=== PATIENT | male | born 1970 | race African-American/Black ===

== ENCOUNTER 2018-04-30 06:05 | Emergency (ER) | payer SELFPAY ==
[~2018-04-30] VITALS: Ht 182.9 cm; Wt 102.1 kg
[2018-04-30 06:07] VITALS: BP 156/97
[2018-04-30 06:53] LABS: MEAN CORPUSCULAR HGB CONC 33.1 g/dL (33.2-36.2); MEAN CORPUSCULAR VOLUME 87.7 fL (81-97); MEAN PLATELET VOLUME 7.4 fL (7.4-10.4); PLATELET COUNT 189 x10^3/uL (130-400); RED BLOOD COUNT 4.66 x10^6/uL (4.38-5.82); RED CELL DISTRIBUTION WIDTH 12.9 % (9.4-14.8)
[2018-04-30 06:59] LABS: ANION GAP 5 mmol/L (5-15); CALCIUM 8.7 mg/dL (8.5-10.1); CHLORIDE 109 mmol/L (98-107); CREATININE 1.02 mg/dL (0.7-1.3)
[2018-04-30 07:00] LABS: ALANINE AMINOTRANSFERASE 21 U/L (12-78)
[2018-04-30 07:02] LABS: ALKALINE PHOSPHATASE 71 U/L (45-117); BILIRUBIN,TOTAL 0.9 mg/dL (0.2-1.0); TOTAL PROTEIN 7.6 g/dL (6.4-8.2)
[2018-04-30 07:39] LABS: BASOPHILS # (AUTO) 0.01 x10^3/uL (0-0.1); BASOPHILS % (AUTO) 0 % (0-1); EOSINOPHILS # (AUTO) 0.01 x10^3/uL (0-0.4); EOSINOPHILS % (AUTO) 0 % (1-7); LYMPHOCYTES # (AUTO) 1.32 x10^3/uL (1-3.4); LYMPHOCYTES % (AUTO) 30 % (22-44); MONOCYTES # (AUTO) 0.25 x10^3/uL (0.2-0.8); MONOCYTES % (AUTO) 6 % (2-9); NEUTROPHILS # (AUTO) 2.83 x10^3/uL (1.8-6.8); NEUTROPHILS % (AUTO) 64 % (42-75)
[2018-04-30 07:40] LABS: MD SCAN
[2018-04-30 07:52] LABS: MICROSCOPIC AUTO
[2018-04-30] MEDS ORDERED: CEFTRIAXONE 1,000 MG ONE (07:56)
[2018-04-30] MEDS ORDERED: FLUCONAZOLE 100 MG TABLET ONE (07:56)
[2018-04-30] MEDS ORDERED: FLUCONAZOLE 100 MG TABLET PO ONE (08:00)
[2018-04-30] MEDS ORDERED: CEFTRIAXONE 1,000 MG IM ONE (08:00)
[2018-04-30 08:05] LABS: CULTURE INDICATED? NO
== END 2018-04-30 09:11 | disposition home or self-care (01) ==
LOC: ED 08:41
DX: K52.9 Noninfective gastroenteritis and colitis, unspecified (principal); L03.115 Cellulitis of right lower limb
CPT/HCPCS: 36415; 80053; 81001; 83690; 85025; 96372; 99284; J0696

== ENCOUNTER 2018-06-08 07:27 | Emergency (ER) | payer OTHER ==
[~2018-06-08] VITALS: Ht 182.9 cm; Wt 109.8 kg
[2018-06-08 07:30] VITALS: BP 144/92
[2018-06-08] MEDS ORDERED: LIDOCAINE-MPF 1%, 5ML INFIL ONE (08:00)
[2018-06-08] MEDS ORDERED: LIDOCAINE-MPF 2%, 2ML SQ ONE ×2 (08:00)
[2018-06-08] MEDS ORDERED: L.E.T SOLUTION TP ONE ×2 (08:19→09:00)
[2018-06-08] MEDS ORDERED: LIDOCAINE-MPF 2%, 2ML ONE (08:28)
[2018-06-08] MEDS ORDERED: DIPH,PERTUSS(ACELL),TET VAC/PF 0.5 ML IM-VACC ONE ×2 (08:45→09:00)
[2018-06-08] MEDS ORDERED: BACITRACIN ZINC OINT 500U/GM, 0.9 GM ONE (08:46)
== END 2018-06-08 10:20 | disposition home or self-care (01) ==
LOC: ED 10:14
DX: S06.0X9A Concussion with loss of consciousness of unspecified duration, initial encounter (principal); S02.2XXA Fracture of nasal bones, initial encounter for closed fracture; W01.0XXA Fall on same level from slipping, tripping and stumbling without subsequent striking against object, initial encounter; Y93.89 Activity, other specified; Y92.410 Unspecified street and highway as the place of occurrence of the external cause; Y99.8 Other external cause status
CPT/HCPCS: 12013; 70486; 90471; 90715; 99284; J3490

== ENCOUNTER 2018-06-09 07:07 | Emergency (ER) | payer OTHER ==
[~2018-06-09] VITALS: Ht 182.9 cm; Wt 95.3 kg
[2018-06-09 07:13] VITALS: BP 148/76
[2018-06-09] MEDS ORDERED: SULFAMETH./TRIMETHOPRIM DS 800MG/160MG TABLET PO ONE (08:00)
== END 2018-06-09 08:05 | disposition home or self-care (01) ==
LOC: ED 07:59
DX: K13.0 Diseases of lips (principal)
CPT/HCPCS: 99283

== ENCOUNTER 2018-06-12 05:30 | Emergency (ER) | payer SELFPAY ==
[~2018-06-12] VITALS: Ht 182.9 cm; Wt 105.6 kg
[2018-06-12 05:34] VITALS: BP 132/78
[2018-06-12] MEDS ORDERED: CEFTRIAXONE 1,000 MG ONE (05:59)
[2018-06-12] MEDS ORDERED: CEFTRIAXONE 1,000 MG IM ONE (06:00)
== END 2018-06-12 06:35 ==
LOC: ED 05:48
DX: S01.511D Laceration without foreign body of lip, subsequent encounter (principal); K13.0 Diseases of lips; X58.XXXD Exposure to other specified factors, subsequent encounter
CPT/HCPCS: 96372; 99283; J0696

== ENCOUNTER 2019-12-23 07:57 | Emergency (ER) | payer MEDICARE ==
[~2019-12-23] VITALS: Ht 182.9 cm; Wt 90.0 kg
--- NOTE | 2019-12-23 08:17 | NUR ---
pt BIB [facility] after witnessed syncopal episode, pt ANOx4 at this time. Stand by assist transfer into [facility], resting gown. reports not eating since some point yesterday, blood sugar enroute 89. NAD, even and unlabored respirations, talking in complete sentences, no SOB. WCTM
[2019-12-23 08:35] LABS: MEAN CORPUSCULAR HEMOGLOBIN 29.2 pg (27.5-34.5); MEAN CORPUSCULAR HGB CONC 32.3 g/dL (33.2-36.2); MEAN CORPUSCULAR VOLUME 90.4 fL (81-97); MEAN PLATELET VOLUME 6.9 fL (7.4-10.4); PLATELET COUNT 258 x10^3/uL (130-400); RED BLOOD COUNT 3.74 x10^6/uL (4.38-5.82); RED CELL DISTRIBUTION WIDTH 12.8 % (9.4-14.8)
[2019-12-23 08:40] LABS: ALBUMIN 3.6 g/dL (3.4-5.0); ANION GAP 6 mmol/L (5-15); CALCIUM 9.2 mg/dL (8.5-10.1); CHLORIDE 109 mmol/L (98-107); CREATININE 1.12 mg/dL (0.7-1.3)
[2019-12-23 08:44] LABS: TROPONIN I < 0.015 ng/mL (0.000-0.045)
--- NOTE | 2019-12-23 08:45 | NUR ---
PT RESTING IN GURNEY, WATCHING TV, NAD, EYES OPEN, CONVERSING IN FULL SENTENCES NO SOB NOTED. DENIES ADDITIONAL NEEDS AT THIS TIME. WCTM. WAITING FOR LABS AND RAD RESULTS.
[2019-12-23 09:11] LABS: BASOPHILS # (AUTO) 0.03 x10^3/uL (0-0.1); BASOPHILS % (AUTO) 1 % (0-1); EOSINOPHILS # (AUTO) 0.42 x10^3/uL (0-0.4); EOSINOPHILS % (AUTO) 10 % (1-7); LYMPHOCYTES # (AUTO) 1.45 x10^3/uL (1-3.4); LYMPHOCYTES % (AUTO) 34 % (22-44); MD SCAN; MONOCYTES # (AUTO) 0.38 x10^3/uL (0.2-0.8); MONOCYTES % (AUTO) 9 % (2-9); NEUTROPHILS # (AUTO) 2.03 x10^3/uL (1.8-6.8); NEUTROPHILS % (AUTO) 47 % (42-75)
[2019-12-23 09:33] VITALS: BP 109/71
--- NOTE | 2019-12-23 09:34 | NUR ---
Patient given discharge instructions and they have confirmed that they understand the instructions. Patient ambulatory with steady gait. Pt given new clean socks, denies additional needs at this time.
--- NOTE | 2019-12-23 09:48 | NUR ---
possible bed bugs noted in room, EVS notified.
== END 2019-12-23 10:01 | disposition home or self-care (01) ==
LOC: ED 08:34
DX: R55 Syncope and collapse (principal); D64.9 Anemia, unspecified; R07.9 Chest pain, unspecified
CPT/HCPCS: 36415; 71045; 80048; 82040; 84484; 85025; 93005

== ENCOUNTER 2020-02-20 10:39 | Emergency (ER) | payer MEDICARE ==
[~2020-02-20] VITALS: Ht 182.9 cm; Wt 96.8 kg
[2020-02-20 10:40] VITALS: BP 138/86
--- NOTE | 2020-02-20 11:55 | NUR ---
PT TAKEN TO SHOWER WITH CLEANING SUPPLIES. PT WITH POOR HYGIENE, UNKEMPT AND DIRTY.
--- NOTE | 2020-02-20 12:46 | NUR ---
SOCKS PROVIDED, NO SHOES AVAILABLE IN DONATIONS.
[2020-02-20] MEDS ORDERED: IBUPROFEN 200 MG TABLET ONE (12:55)
[2020-02-20] MEDS ORDERED: IBUPROFEN 800 MG TABLET PO ONE (13:00)
[2020-02-20] MEDS ORDERED: NYSTATIN TOPICAL POWDER 15GM TP PRN (13:30)
--- NOTE | 2020-02-20 13:34 | NUR ---
PT GIVEN COUPON FOR MEDICATION AND CARE CHEST REFERRAL. PT AMBULATORY TO MO DESK.
--- NOTE | 2020-02-20 13:50 | NUR ---
PHARMACY DOES NOT HAVE NYSTATIN POWDER, UNABLE TO PROVIDE TO PT. PT WITH SCRIPT AND COUPON FOR SAME.
== END 2020-02-20 14:16 | disposition home or self-care (01) ==
LOC: ED 11:37
DX: L03.115 Cellulitis of right lower limb (principal); L03.116 Cellulitis of left lower limb
CPT/HCPCS: 99283

== ENCOUNTER 2021-02-23 10:26 | Emergency (ER) | payer MEDICARE ==
[~2021-02-23] VITALS: Ht 182.9 cm; Wt 102.0 kg
[2021-02-23 10:30] VITALS: BP 125/86
--- NOTE | 2021-02-23 10:43 | NUR ---
PATIENT WALKED BACK FROM TRIAGE WITH CHIEF C/O LEFT SHOULDER RASH X2 DAYS. PATIENT REPORTS FEVER AND NOT "FEELING WELL." NADN, CALL LIGHT WITHIN REACH.
--- NOTE | 2021-02-23 10:46 | NUR ---
ERPA AT BEDSIDE FOR EVALUATION.
[2021-02-23] MEDS ORDERED: IBUPROFEN 600 MG TABLET ONE (10:58)
[2021-02-23] MEDS ORDERED: IBUPROFEN 200 MG TABLET PO ONE (11:00)
[2021-02-23 11:20] LABS: RAPID INFLUENZA A Negative (Negative); RAPID INFLUENZA B Negative (Negative)
--- NOTE | 2021-02-23 11:47 | NUR ---
PATIENT SITTING AT EDGE OF KIRTI DAWSON, CALL LIGHT WITHIN REACH. PATIENT UP FOR RECHECK.
--- NOTE | 2021-02-23 12:31 | NUR ---
Patient given discharge instructions and they have confirmed that they understand the instructions. Patient ambulatory with steady gait. NAD, all questions answered appropriately, denies additional needs at this time. No personal belongings left in room after discharge.
== END 2021-02-23 12:31 | disposition home or self-care (01) ==
LOC: ED 11:08
DX: J06.9 Acute upper respiratory infection, unspecified (principal); Z20.822 Contact with and (suspected) exposure to COVID-19; B34.9 Viral infection, unspecified; M79.10 Myalgia, unspecified site
CPT/HCPCS: 87400; 99283; U0003; U0005

== ENCOUNTER 2021-04-01 11:41 | Emergency (ER) | payer MEDICARE ==
[~2021-04-01] VITALS: Ht 182.9 cm; Wt 99.2 kg
[2021-04-01 11:44] VITALS: BP 126/74
--- NOTE | 2021-04-01 12:49 | NUR ---
erpa at bedside for initial assessment/eval
[2021-04-01] MEDS ORDERED: ACETAMINOPHEN 500 MG TABLET PO ONE (13:00)
[2021-04-01] MEDS ORDERED: IBUPROFEN 600 MG TABLET PO ONE (13:00)
[2021-04-01] MEDS ORDERED: ACETAMINOPHEN 500 MG TABLET ONE (13:03)
[2021-04-01] MEDS ORDERED: IBUPROFEN 600 MG TABLET ONE (13:03)
--- NOTE | 2021-04-01 13:19 | NUR ---
pt educated on discharge, verbalized understanding. ambulatory to dc desk with steady gait.
== END 2021-04-01 13:21 | disposition home or self-care (01) ==
LOC: ED 13:13
DX: M79.10 Myalgia, unspecified site (principal); B34.9 Viral infection, unspecified; Z20.822 Contact with and (suspected) exposure to COVID-19
CPT/HCPCS: 99283; U0003; U0005

== ENCOUNTER 2021-05-29 13:15 | Emergency (ER) | payer MEDICARE ==
--- NOTE | 2021-05-29 13:21 | NUR ---
CALLED FOR PT. PT NOT IN LOBBY
--- NOTE | 2021-05-29 14:47 | NUR ---
CALLED FOR PT. PT NOT IN LOBBY
--- NOTE | 2021-05-29 15:17 | NUR ---
[id number].
== END 2021-05-29 16:00 ==
LOC: ED 13:20
DX: M79.662 Pain in left lower leg (principal); Z53.21 Procedure and treatment not carried out due to patient leaving prior to being seen by health care provider